=== PATIENT | male | born 1950 | race Two or more races ===

== ENCOUNTER 2024-05-25 20:10 | Emergency (ER) | payer OTHER ==
[~2024-05-25] VITALS: Ht 170.2 cm; Wt 72.6 kg
[2024-05-25] MEDS ORDERED: CARDURA8 MG PO (20:28)
[2024-05-25] MEDS ORDERED: NORVASC2.5 MG PO (20:28)
[2024-05-25] MEDS ORDERED: ATACAND32 MG PO (20:28)
[2024-05-25] MEDS ORDERED: TOPROL XL25 M1 PO (20:28)
== END 2024-05-26 00:05 | disposition home or self-care (01) ==
LOC: ER 20:11
DX: I10 Essential (primary) hypertension (principal); Y92.018 Other place in single-family (private) house as the place of occurrence of the external cause; Z91.041 Radiographic dye allergy status; T50.901A Poisoning by unspecified drugs, medicaments and biological substances, accidental (unintentional), initial encounter